=== PATIENT | female | born 1950 | race Caucasian/White ===

== ENCOUNTER 2016-12-22 19:49 | Emergency (ER) | payer SELFPAY ==
[~2016-12-22] VITALS: Wt 132.0 kg
--- NOTE | 2016-12-22 21:57 | ERD ---
ER Documentation Chief Complaint Date/Time DATE: 12/22/16 TIME: 21:53 Chief Complaint CP x3 days, HX. Pleural effusion, Cardiomagaly and HTN HPI Patient is a 66-year-old female who presents with gradual onset, constant, mild to moderate, dull pain to the left parasternal area radiating to her left shoulder and posterior neck for 4 days. She states that the pain has been constant during this time. She feels slightly short of breath. The patient uses home oxygen due to obstructive sleep apnea and CHF. The patient denies history of myocardial infarction. The patient saw her PMD yesterday, and has not had new symptoms since that time. The patient is on antibiotics for a dental infection. She denies vomiting, cough, fever. She denies pleuritic pain. ROS All systems reviewed and are negative except as per history of present illness. Medications Home Meds Active Scripts Cyclobenzaprine Hcl* (Cyclobenzaprine Hcl*) 10 Mg Tablet, 10 MG PO Q8 Y for PAIN , #20 TAB Prov:MORENA LOPEZ MD 12/22/16 Reported Medications [None] No Conflict Check 12/05/10 Allergies Allergies: Coded Allergies: No Known Drug Allergies (Verified Allergy, Mild, 12/05/10) PMhx/Soc Past medical history: congestive heart failure, hypertension, uterine cancer, obstructive sleep apnea, chronic knee pain Past surgical history: hysterectomy, cholecystectomy Social history: No current or past tobacco or alcohol History of Surgery: Yes (CHOLECYSTECTOMY, LEFT KNEE) Anesthesia Reaction: No Hx Neurological Disorder: No Hx Respiratory Disorders: No Hx Cardiac Disorders: No Hx Psychiatric Problems: No Hx Miscellaneous Medical Probl: No Hx Alcohol Use: No Hx Substance Use: No Hx Tobacco Use: No Smoking Status: Never smoker FmHx Family History: No coronary disease, No diabetes Physical Exam Vitals Vital Signs Date Time Temp Pulse Resp B/P Pulse Ox O2 Delivery O2 Flow Rate FiO2 12/23/16 00:10 78 17 144/69 96 Room Air 12/22/16 22:54 78 16 159/59 100 Nasal Cannula 3.0 12/22/16 22:10 3.0 30 12/22/16 22:04 Nasal Cannula 3 12/22/16 22:00 79 17 150/82 99 Room Air 12/22/16 20:05 97.8 96 24 186/83 96 Physical Exam Const: Alert, no acute distress Head: Atraumatic Eyes: Normal Conjunctiva, no pallor, no icterus ENT: Normal External Ears, Nose and Mouth. Moist mucous membranes, dental caries in the upper molars bilaterally Neck: Full range of motion..~ No meningismus. No JVD Resp: Clear to auscultation bilaterally, no wheezes, no rales Cardio: Regular rate irregularly irregular rhythm, no murmurs. Significant tenderness to left parasternal chest wall muscles, left trapezius, and left cervical paraspinal muscles Abd: Soft, non tender, non distended. Morbidly obese Skin: No petechiae or rashes Back: No midline or flank tenderness Ext: No cyanosis, trace pitting edema bilateral ankles Neur: Awake and alert, cranial nerves II through XII intact bilaterally, moves and feels 4 extremities appropriately Psych: Normal Mood and Affect Result Diagram: 12/22/16222112/22/162221 Results 24 hrs Laboratory Tests Test 12/22/16 22:22 White Blood Count 7.910^3/ul Red Blood Count 5.5410^6/ul Hemoglobin 12.9g/dl Hematocrit 42.3% Mean Corpuscular Volume 76.4fl Mean Corpuscular Hemoglobin 23.3pg Mean Corpuscular Hemoglobin Concent 30.5g/dl Red Cell Distribution Width 17.2% Platelet Count 99271^3/UL Mean Platelet Volume 8.6fl Neutrophils % 66.2% Lymphocytes % 21.3% Monocytes % 9.3% Eosinophils % 2.3% Basophils % 0.6% Nucleated Red Blood Cells % 0.0/100WBC Neutrophils # 5.310^3/ul Lymphocytes # 1.710^3/ul Monocytes # 0.710^3/ul Eosinophils # 0.210^3/ul Basophils # 0.110^3/ul Nucleated Red Blood Cells # 0.010^3/ul Prothrombin Time 13.6Sec Prothrombin Time Ratio 1.1 INR International Normalized Ratio 1.04 Sodium Level 139mmol/L Potassium Level 3.6mmol/L Chloride Level 109mmol/L Carbon Dioxide Level 24mmol/L Anion Gap 10 Blood Urea Nitrogen 22mg/dl Creatinine 0.65mg/dl Glucose Level 102mg/dl Calcium Level 8.7mg/dl Troponin I < 0.012ng/ml [facility] EKG read by me: Time 2008, rate 82 Rhythm: Atrial fibrillation [place]: Normal Intervals: Normal ST-T waves: no ischemic changes Ectopy: No Q-waves: No Impression: Atrial fibrillation, otherwise normal EKG. MDM: Patient is a 66-year-old female who presents with left chest, shoulder, upper back and neck pain for the last 4 days. Her pain is been constant this entire time. It is easily reproducible on exam and consistent with musculoskeletal pain. The patient does have cardiac history of CHF, but does not have history of known coronary artery disease. EKG and troponin were unremarkable. The patient does not have significant dyspnea. Her chest x-ray shows cardiomegaly and mild failure. The patient is on home oxygen and has no respiratory distress, tachypnea, or increased oxygen requirement. I will prescribe the patient Flexeril for muscle spasm. The patient was noted to be in atrial fibrillation, which is of unknown duration. I advised the patient to follow-up with her PMD and/or platinum smith in 2 days to discuss the need for anticoagulation, as well as further management of her underlying CHF. Departure Diagnosis: Primary Impression: Musculoskeletal chest pain Additional Impression: Atrial fibrillation Atrial fibrillation type: unspecified Qualified Code: I48.91 - Atrial fibrillation, unspecified type Condition: MORENA Grimes MD Dec 22, 2016 21:57
[2016-12-22 22:29] LABS: ADD SCAN DIFF NO
[2016-12-22 22:32] LABS: BASOPHIL # 0.1 10^3/ul (0.0-0.1); BASOPHILS % 0.6 % (0.0-2.0); EOSINOPHILS # 0.2 10^3/ul (0.0-0.5); EOSINOPHILS % 2.3 % (0.0-7.0); HEMATOCRIT 42.3 % (37.0-47.0); HEMOGLOBIN 12.9 g/dl (12.0-16.0); LYMPHOCYTES # 1.7 10^3/ul (0.8-2.9); LYMPHOCYTES % 21.3 % (15.0-51.0); MEAN CORPUSCULAR HEMOGLOBIN 23.3 pg (29.0-33.0); MEAN CORPUSCULAR HGB CONC 30.5 g/dl (32.0-37.0); MEAN CORPUSCULAR VOLUME 76.4 fl (82.0-101.0); MEAN PLATELET VOLUME 8.6 fl (7.4-10.4); MONOCYTE # 0.7 10^3/ul (0.3-0.9); MONOCYTES % 9.3 % (0.0-11.0); NEUTROPHIL # 5.3 10^3/ul (1.6-7.5); NEUTROPHILS % 66.2 % (39.0-77.0); PLATELET COUNT 253 10^3/UL (140-415); RED BLOOD COUNT 5.54 10^6/ul (4.20-5.40); RED CELL DISTRIBUTION WIDTH 17.2 % (11.5-14.5); WHITE BLOOD COUNT 7.9 10^3/ul (4.8-10.8)
[2016-12-22 22:45] LABS: INR 1.04; PROTIME 13.6 Sec (12.2-14.2); PT RATIO 1.1
[2016-12-22 22:52] LABS: ANION GAP 10 (8-16); BLOOD UREA NITROGEN 22 mg/dl (7-20); CALCIUM 8.7 mg/dl (8.4-10.2); CARBON DIOXIDE 24 mmol/L (21-31); CHLORIDE 109 mmol/L (97-110); CREATININE 0.65 mg/dl (0.44-1.00); GLUCOSE 102 mg/dl (70-220); POTASSIUM 3.6 mmol/L (3.5-5.1); SODIUM 139 mmol/L (135-144)
--- NOTE | 2016-12-22 23:11 | RADRPT ---
PROCEDURE: XR Chest. CLINICAL INDICATION: Chest Pain. TECHNIQUE: PA and Lateral views of the chest were obtained. COMPARISON: None. FINDINGS: Cardiomegaly. Mild pulmonary vascular ingestion and mild air space disease and bilateral lung bases . No signs of pleural fluid or pneumothorax are seen. The osseous structures and soft tissues are un remarkable. IMPRESSION: Mild failure. RPTAT: [facility] Physician Mercedez Date Time Electronically viewed and signed by Physician Mercedez on 12/22/2016 23:11 RS/
[2016-12-22 23:21] LABS: TROPONIN-I < 0.012 ng/ml (0.00-0.12)
[2016-12-22] MEDS ORDERED: CYCL-319 PO (23:27)
[2016-12-23 00:10] VITALS: BP 144/69; PULSE 78; RESP 17
== END 2016-12-23 00:10 | disposition home or self-care (01) ==
LOC: E/R 19:49
DX: R07.9 Chest pain, unspecified (principal); I48.91 Unspecified atrial fibrillation; I50.9 Heart failure, unspecified; I10 Essential (primary) hypertension; Z85.41 Personal history of malignant neoplasm of cervix uteri
CPT/HCPCS: 36415; 71010; 80048; 84484; 85025; 85610; 93005

== ENCOUNTER 2019-03-08 19:23 | Inpatient (IN) | payer OTHER ==
[~2019-03-08] VITALS: Ht 149.9 cm; Wt 119.0 kg
[~2019-03-08 19:23] MED LIST: ALBU18HF INHALATION; ATOR20TA38 PO; FURO-110 PO; MELO15TA30 PO; METO-429 PO; METO-448 PO; MONT10TA24 PO; NAPR-985 PO; OMEP20CA16 PO; POTA20TA96 PO; RIVA20TA5 PO
[2019-03-08] MEDS ORDERED: NITROGLYCERIN 2% 1 GM OINT PKT TD STA (19:33)
[2019-03-08] MEDS ORDERED: ASPIRIN 81 MG TAB PO STA (19:33)
[2019-03-08] MEDS ORDERED: NITROGLYCERIN (SL) 0.4 MG TAB SL PRN (20:00)
[2019-03-08] MEDS ORDERED: ONDANSETRON 4 MG INJ IV PRN ×2 (21:00→21:30)
[2019-03-08] MEDS ORDERED: ACETAMINOPHEN 325 MG TAB PO PRN (21:00)
[2019-03-08] MEDS ORDERED: LABETALOL HCL 20MG INJ IV ONE (21:00)
[2019-03-08] MEDS ORDERED: NAPROXEN 500 MG TAB PO PRN (21:30)
[2019-03-08] MEDS: ALBUTEROL 18 GM INHALER INH SCH (21:30)
[2019-03-08] MEDS ORDERED: NACL 0.9% 3 ML SYG IV SCH (21:30)
[2019-03-08] MEDS ORDERED: morphine 2 MG INJ IV PRN (21:30)
[2019-03-08 22:54] VITALS: BP 122/73; PULSE 86; RESP 22
[2019-03-08 22:56] VITALS: Ht 149.9 cm; Wt 119.0 kg
[2019-03-08 23:30] VITALS: BP 130/69; RESP 21
[2019-03-08] MEDS: FUROSEMIDE 40 MG INJ IV SCH (23:33)
[2019-03-08] MEDS: ACETAMINOPHEN 325 MG TAB PO PRN (23:33)
[2019-03-09] MEDS: ALBUTEROL 18 GM INHALER INH SCH ×4 (01:00→20:57)
[2019-03-09 03:21] VITALS: BP 102/65; PULSE 51; RESP 20
[2019-03-09] MEDS: PANTOPRAZOLE (EC) 40 MG TAB PO SCH (06:08)
[2019-03-09] MEDS: FUROSEMIDE 40 MG INJ IV SCH ×2 (06:12→17:44)
[2019-03-09 07:25] VITALS: BP 139/73; PULSE 82; RESP 20
[2019-03-09] MEDS: ACETAMINOPHEN 325 MG TAB PO PRN (08:20)
[2019-03-09] MEDS ORDERED: ENOXAPARIN 40 MG/0.4 ML SYG SC SCH (09:00)
[2019-03-09] MEDS ORDERED: METOPROLOL 25 MG TAB PO SCH (09:00)
[2019-03-09] MEDS ORDERED: FUROSEMIDE 20 MG TAB PO SCH (09:00)
[2019-03-09] MEDS ORDERED: MAGNESIUM SULFATE 2 GM/50 ML 50 ML IVPB ONE (10:30)
[2019-03-09 11:05] VITALS: BP 114/60; PULSE 58; RESP 20
[2019-03-09] MEDS: METOPROLOL 50 MG TAB PO SCH ×2 (14:00→22:55)
[2019-03-09 15:19] VITALS: BP 105/61; PULSE 55; RESP 20
[2019-03-09] MEDS ORDERED: RIVAROXABAN 20 MG TABLET PO SCH (17:55)
[2019-03-09 20:00] VITALS: BP 111/58; PULSE 82; RESP 18
[2019-03-09] MEDS ORDERED: MONTELUKAST 10 MG TAB PO SCH (21:00)
[2019-03-09] MEDS ORDERED: ATORVASTATIN 20 MG TAB PO SCH (21:00)
[2019-03-10] VITALS: BP 130/62; PULSE 75; RESP 19
[2019-03-10] MEDS: ACETAMINOPHEN 325 MG TAB PO PRN ×2 (00:09→06:37)
[2019-03-10] MEDS: ALBUTEROL 18 GM INHALER INH SCH ×2 (01:00→05:00)
[2019-03-10 04:00] VITALS: BP 96/69; PULSE 74; RESP 18
[2019-03-10] MEDS: METOPROLOL 50 MG TAB PO SCH ×2 (05:20→14:58)
[2019-03-10] MEDS: PANTOPRAZOLE (EC) 40 MG TAB PO SCH (06:30)
[2019-03-10] MEDS: FUROSEMIDE 40 MG INJ IV SCH (06:31)
[2019-03-10 07:28] VITALS: BP 136/69; PULSE 67; RESP 20
[2019-03-10 11:41] VITALS: BP 100/57; PULSE 85; RESP 20
[2019-03-10] MEDS ORDERED: POTASSIUM CHLORIDE (SR) 20 MEQ TAB PO STA (13:05)
[2019-03-10] MEDS ORDERED: MAGNESIUM SULFATE 1 GM/D5W 100 ML IVPB ONE (13:30)
[2019-03-10 15:34] VITALS: BP 137/83; PULSE 85; RESP 20
== END 2019-03-10 19:23 | disposition home health service (06) | DRG 291 ==
LOC: E/R 19:23 → TEL 20:51 → EDBEDREQ 20:58 → OBSVTOIN 03-10 09:57
PROVIDERS: ADMIT Family Medicine; ATTEND Family Medicine
PROC: 3E0F7GC Introduction of Other Therapeutic Substance into Respiratory Tract, Via Natural or Artificial Opening (ICD-10-PCS; principal; 2019-03-08)
DX: I11.0 Hypertensive heart disease with heart failure (principal); I50.31 Acute diastolic (congestive) heart failure; J96.21 Acute and chronic respiratory failure with hypoxia; Z68.43 Body mass index [BMI] 50.0-59.9, adult; E66.01 Morbid (severe) obesity due to excess calories; E83.42 Hypomagnesemia; D75.1 Secondary polycythemia; I48.2 Chronic atrial fibrillation; J44.9 Chronic obstructive pulmonary disease, unspecified; Z99.81 Dependence on supplemental oxygen; I16.0 Hypertensive urgency; I10 Essential (primary) hypertension; E78.5 Hyperlipidemia, unspecified; R07.9 Chest pain, unspecified; Z85.42 Personal history of malignant neoplasm of other parts of uterus; Z90.49 Acquired absence of other specified parts of digestive tract; Z79.02 Long term (current) use of antithrombotics/antiplatelets; Z91.19 Patient's noncompliance with other medical treatment and regimen
CPT/HCPCS: 36415; 71045; 80048; 80053; 80061; 82550; 82553; 83036; 83540; 83735; 83880; 84100; 84443; 84484; 85025; 93005; 93306; 99217; G0378; J1940; J3475